=== PATIENT | male | born 1960 | race Caucasian/White ===

== ENCOUNTER 2016-05-13 15:11 | Emergency (ER) | payer BC ==
--- NOTE | 2016-05-13 15:28 | ER Document Report ---
ED Medical Screen (RME) - General Stated Complaint: POSSIBLE SKIN ISSUE Notes: onset was monday right cheng with evidence of erythema, tenderness, edema has become more severe in regards to pain and erythema over the course of the past two days I have greeted and performed a rapid initial assessment of this patient. A comprehensive ED assessment and evaluation of the patient, analysis of test results and completion of the medical decision making process will be conducted by additional ED providers.
[2016-05-13] MEDS ORDERED: HYDROCODONE/ACETAMINOPHEN 5-325 MG 6 TAB/DSPK PO PRN (20:29)
[2016-05-13] MEDS ORDERED: OXYCODONE-ACETAMINOPHEN 5-325 MG TABLET PO ONE (20:29)
[2016-05-13] MEDS ORDERED: CEPHALEXIN 500 MG CAPSULE PO ONE (20:30)
[2016-05-13] MEDS ORDERED: SULFAMETHOXAZOLE/TRIMETHOPRIM 800-160 MG TABLET PO ONE (20:30)
--- NOTE | 2016-05-13 20:37 | ER Document Report ---
ED Extremity Problem, Lower - General Chief Complaint: Skin Problem Stated Complaint: POSSIBLE SKIN ISSUE Time seen by provider: 20:33 Mode of Arrival: Ambulatory Information source: Patient - HPI Patient complains to provider of: Pain, Other - Redness Location: Leg - Lower right Occurred: Other - 2 days Onset/Duration: Worse Quality of pain: Achy Severity: Moderate Pain Level: 3 Recent injury: No Exacerbated by: Nothing Relieved by: Nothing Notes: Patient is a 55-year-old male presenting to the emergency room complaining of right lower extremity redness and pain that's been going on for the past 2 days , he denies any injury or trauma, no fever, he did recently have nausea and vomiting with fever 3-4 days ago, that has since resolved, he denies any known insect or other animal bites, no history of similar symptoms previously - Related Data Allergies/Adverse Reactions: No Known Allergies Allergy (Unverified 05/13/16 15:28) Past Medical History - General Information source: Patient - Social History Smoking Status: Never Smoker Chew tobacco use (# tins/day): No Frequency of alcohol use: None Drug Abuse: None Family History: Reviewed & Not Pertinent Patient has suicidal ideation: No Patient has homicidal ideation: No Renal/ Medical History: Denies: Hx Peritoneal Dialysis Review of Systems - Review of Systems Constitutional: No symptoms reported. denies: Fever EENT: No symptoms reported Cardiovascular: No symptoms reported Respiratory: No symptoms reported Gastrointestinal: No symptoms reported Genitourinary: No symptoms reported Male Genitourinary: No symptoms reported Musculoskeletal: See HPI Skin: See HPI Hematologic/Lymphatic: No symptoms reported Neurological/Psychological: No symptoms reported -: Yes All other systems reviewed and negative Physical Exam - Vital signs Interpretation: Normal - General General appearance: Appears well, Alert In distress: None - HEENT Head: Normocephalic, Atraumatic Eyes: Normal Conjunctiva: Normal Extraocular movements intact: Yes Eyelashes: Normal Pupils: PERRL - Respiratory Respiratory status: No respiratory distress - Cardiovascular Rhythm: Regular - Abdominal Inspection: Normal, Obese - Back Back: Normal - Extremities General upper extremity: Normal inspection, Nontender, Normal color, Normal ROM , Normal temperature General lower extremity: Normal ROM. No: Ginette's sign Calf: Other - Right lower extremity with diffuse erythema, mild swelling, tenderness, increased warmth, extending from just distal to the knee down to the ankle, no drainage, distal sensation and motor is intact - Neurological Neuro grossly intact: Yes Cognition: Normal Orientation: AAOx4 [place] Coma Scale Eye Opening: Spontaneous [place] Coma Scale Verbal: Oriented [place] Coma Scale Motor: Obeys Commands [place] Coma Scale Total: 15 Speech: Normal - Psychological Associated symptoms: Normal affect, Normal mood - Skin Skin Temperature: Warm Skin Moisture: Dry Skin Color: Normal Course - Re-evaluation Re-evalutation: 05/13/16 20:36 Physical exam findings consistent with cellulitis to the right lower leg, patient was started on antibiotics and provided with pain medication, he was advised to follow-up with his primary care provider in one to 2 days or return if symptoms worsen or fail to improve over the next 2-3 days, patient acknowledges understanding and agreement with this plan Discharge - Discharge Clinical Impression: Cellulitis Qualifiers: Site of cellulitis: extremity Site of cellulitis of extremity: lower extremity Laterality: right Qualified Code(s): L03.115 - Cellulitis of right lower limb Condition: Stable Disposition: HOME, SELF-CARE Instructions: Cellulitis ([facility]) Additional Instructions: Follow up with your primary care provider in one to 2 days. Return to the emergency room immediately if symptoms worsen or any additional concerns. Prescriptions: Levetiracetam [Keppra 500 mg Tablet] 500 mg PO Q12 #60 tablet Oxycodone HCl/Acetaminophen [Percocet 5-325 mg Tablet] 1 - 2 tab PO ASDIR PRN # 15 tablet PRN Reason: Sulfamethoxazole/Trimethoprim [Bactrim Ds Tablet] 1 each PO BID #20 tablet
== END 2016-05-13 20:56 | disposition home or self-care (01) ==
LOC: ER 15:11
DX: L03.115 Cellulitis of right lower limb (principal); R11.2 Nausea with vomiting, unspecified
CPT/HCPCS: 99283

== ENCOUNTER → 2016-06-03 | Outpatient (CLI) | payer BC ==
--- NOTE | 2016-06-03 15:59 | XCELERA REPORT ---
[address] [address] Lower Extremity Venous Evaluation Name: YULIYA DE LEON Age: 55 yrs Gender: Male : 1960 Patient Status: Outpatient Patient Location: Study Date: 06/03/2016 01:41 PM Procedure: Color flow and duplex imaging of the veins of the right lower extremity as well as the left Common Femoral vein. Reason For Study: RLE PAIN AND EDEMA Ordering Physician: YIFAN BEACH PA-C Performed By: Charles Flores Right Sided Venous Evaluation Normal vessel filling wall to wall, compression and augmentation as well as Colour flow down to the infrageniculate veins. Left Sided Venous Evaluation The left common femoral vein is fully compressible. Spontaneous and phasic flow is present in the left common femoral vein. Critical Findings Called [id number] at 1430. Interpretation Summary No duplex evidence of DVT or obstruction in the right lower extremity nor in the left Common Femoral vein. : YIFAN BEACH PA-C > Bert Olson
--- NOTE | 2016-06-03 16:04 | XCELERA REPORT ---
[address] [address] Lower Extremity Arterial Evaluation Name: YULIYA DE LEON Age: 55 yrs Gender: Male : 1960 Patient Status: Outpatient Patient Location: Study Date: 06/03/2016 01:27 PM Procedure: A color flow and duplex scan of the lower extremity arteries was performed on the right with velocity and waveform anaylsis. Reason For Study: RLE PAIN AND EDEMA Ordering Physician: YIFAN BEACH PA-C Performed By: Charles Flores Measurements and Calculations Right Left REHAB/PRE VOCATIONAL COUNSELOR PSV 184.6 cm/sec Prox PFA PSV -156.2 cm/sec Dist SFA PSV -141.4 cm/sec Prox Pop A PSV 121.9 cm/sec Dist RAMOS PSV 98.7 cm/sec Dist CLIENT CARE COORDINATOR PSV 119.4 cm/sec Edgardo Pedis PSV 85.0 cm/sec Right Side Arterial Evaluation Normal velocity, waveform and triphasic flow are present, from the Common Femoral artery down to the Dorsalis Pedis artery. Biphasic in the Posterior Tibial artery. The ankle-brachial index ws not done. 0-19 % stenosis is noted at the Posterior Tibial artery. Interpretation Summary Mild hemodynamically significant lesions in the right lower extremity only, on duplex imaging, at rest. : YIFAN BEACH PA-C > Bert Olson
== END ==
LOC: SP 12:42
PROVIDERS: ATTEND Physician Assistant
DX: M79.661 Pain in right lower leg (principal); R60.0 Localized edema
CPT/HCPCS: 93926; 93971